=== PATIENT | male | born 1995 | race Caucasian/White ===

== ENCOUNTER 2018-10-17 12:27 | Emergency (ER) | payer OTHER ==
[~2018-10-17] VITALS: Ht 172.7 cm; Wt 71.7 kg
== END 2018-10-17 12:56 | disposition home or self-care (01) ==
LOC: ER 12:27
DX: B86 Scabies (principal)
CPT/HCPCS: 99282

== ENCOUNTER 2019-03-02 15:51 | Emergency (ER) | payer OTHER ==
[~2019-03-02] VITALS: Ht 172.7 cm; Wt 71.7 kg
== END 2019-03-02 17:19 | disposition home or self-care (01) ==
LOC: ER 15:51
DX: S62.641A Nondisplaced fracture of proximal phalanx of left index finger, initial encounter for closed fracture (principal); W22.8XXA Striking against or struck by other objects, initial encounter; F17.200 Nicotine dependence, unspecified, uncomplicated; Y99.0 Civilian activity done for income or pay
CPT/HCPCS: 73140; 99283-25

== ENCOUNTER 2019-03-12 07:00 | Day surgery (SDC) | payer OTHER ==
[~2019-03-12] VITALS: Ht 172.7 cm; Wt 71.9 kg
--- NOTE | 2019-03-12 07:56 | NUR ---
PT ADMITTED TO [facility]. AGREES WITH PLANNED SURGERY. LUNGS SOUNDS CLEAR.
--- NOTE | 2019-03-12 11:33 | NUR ---
GAVE PO PAIN MEDS AFTER TOLERATING PO. PT S.O. AT BEDSIDE.
--- NOTE | 2019-03-12 12:03 | NUR ---
Patient up to Ambulate independently. Gait steady. Discharge instructions reviewed with patient. Patient verbalizes understanding. Copy given to patient to take home. Patient States Post-Procedure ride home has been arranged. Discharged via wheelchair to private car for ride home. ALL BELONGIGNS RETURNED TO PATIENT. SCRIPT IN DISCHARGE PACKET. GIRLFRIEND ASKED FOR IT SEVERAL TIMES.
--- NOTE | 2019-03-12 15:46 | NUR ---
03/12/19 1546 Teressa Gee LEAD APRON OVER PT'S MID ABD DOWN TO MID THIGH.
== END 2019-03-12 22:37 | disposition home or self-care (01) ==
LOC: ORSCMMR 07:00 → ORD 09:00 → ORSCMMR 09:00
PROVIDERS: Orthopaedic Surgery
PROC: 0PSV34Z Reposition Left Finger Phalanx with Internal Fixation Device, Percutaneous Approach (ICD-10-PCS; principal; 2019-03-12 09:00)
DX: S62.611A Displaced fracture of proximal phalanx of left index finger, initial encounter for closed fracture (principal); F41.9 Anxiety disorder, unspecified; F31.9 Bipolar disorder, unspecified
CPT/HCPCS: A9270-GY; C1713; C1769; J0690; J1885; J2250; J2405; J2704; J3010; J7120